=== PATIENT | male | born 1955 | race Caucasian/White ===

== ENCOUNTER 2016-04-16 10:56 | Emergency (ER) ==
[2016-04-16 11:08] VITALS: BP 212/152; TEMP 97.9; BMI 23.5
[2016-04-16] MEDS ORDERED: TRANDATE IVP STA ×2 (11:35→12:31)
[2016-04-16 11:46] LABS: BASOPHILS # (AUTO) 0.1 K/uL (0-0.2); BASOPHILS % (AUTO) 0.8 % (0.0-3.0); EOSINOPHILS # (AUTO) 0.3 K/ul (0.0-0.7); EOSINOPHILS % (AUTO) 2.1 % (0.0-7.0); HEMATOCRIT 49.4 % (42.0-52.0); HEMOGLOBIN 15.7 g/dl (14.0-18.0); IMMATURE GRANULOCYTE % (AUTO) 0.5 % (0.0-5.0); LYMPHOCYTES # (AUTO) 2.3 K/uL (0.60-3.4); LYMPHOCYTES % (AUTO) 17.5 (10.0-50.0); MEAN CORPUSCULAR HEMOGLOBIN 27.7 pg (27.0-31.0); MEAN CORPUSCULAR HGB CONC 31.8 (31.8-35.4); MEAN CORPUSCULAR VOLUME 87.1 fl (80.0-94.0); MONOCYTES # (AUTO) 0.9 K/uL (0.4-2.0); NEUTROPHILS # (AUTO) 9.6 K/ul (2.0-6.9); NEUTROPHILS % (AUTO) 72.1; PLATELET COUNT 204 10^3/uL (140-440); RED BLOOD COUNT 5.67 10^6/ul (4.70-6.10); WHITE BLOOD COUNT 13.27 K/ul (4.2-10.2)
[2016-04-16 11:59] LABS: BILIRUBIN,URINE Negative (NEGATIVE); KETONES,URINE Negative (NEGATIVE); LEUKOCYTE ESTERASE ,URINE Negative (NEGATIVE); NITRITE,URINE Negative (NEGATIVE); PH,URINE 6.5 (5-9); PROTEIN,URINE 1+ (NEGATIVE); URINE, BLOOD 1+ (NEGATIVE)
[2016-04-16 12:02] LABS: ADD URINE MICROSCOPIC YES
--- NOTE | 2016-04-16 12:08 | DI ---
EXAM: Chest two view, frontal and lateral views. HISTORY: Cough. COMPARISON: None available. FINDINGS: The heart size is enlarged. There is tortuosity of the thoracic aorta. 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 Posterior right diaphragm is elevated with focal linear opacity along the right poste rior diaphragm. Otherwise, the lungs are clear. No pleural effusion or pneumothorax is seen. Ther e is no vascular congestion. No acute osseous abnormality identified. IMPRESSION: Elevation of the posterior right diaphragm with adjacent atelectasis. Consider follow-up radiograph s within 3 months for reassessment.
[2016-04-16 12:24] LABS: ALBUMIN 3.8 g/dL (3.4-5.0); ALBUMIN/GLOBULIN RATIO 1.03; ANION GAP 14.5; BILIRUBIN,TOTAL 0.6 mg/dL (0.00-1.20); BUN/CREATININE RATIO 13.55; CALCIUM 9.5 mg/dL (8.2-10.2); CREATININE 1.18 mg/dL (0.60-1.10); POTASSIUM 3.5 mmol/L (3.5-5.1); TOTAL PROTEIN 7.5 g/dL (6.4-8.2); TROPONIN I 0.066 ng/ml (0.0000-0.4000)
--- NOTE | 2016-04-16 12:55 | ED.PDOC ---
General ED Provider: Dr. TENNILLE HERNANDEZ Chief Complaint: Hypertension Stated Complaint: hypertension Time Seen by Physician: 11:00 Mode of Arrival: Walk-In Information Source: Patient Exam Limitations: No limitations Primary Care Provider[facility] Nursing and Triage Documentation Reviewed and Agree: Yes Cardiovascular Complaint Exam - Hypertension Complaint/Exam Onset/Duration: off B/P MEDS FOR WEEKS AT CLINIC HAD SYSTOLIC B/P 200'S Symptoms Are: Still present Reported B/P Prior to Arrival: 200/100 AT CLINIC Alleviating: Reports: None Associated Signs and Symptoms: Denies: Chest pain, Vision changes, Anxiety, Recent stress, Headache, Numbness, Tingling, Weakness, Dizziness, Short of air, Swelling Related Surgical History: Reports: None Cardiac Risk Factors: Reports: Hypertension (CVA) Recent Change in Medications: No A/V [place]: No Papilledema Present: No JVD Present: No Carotid Bruit Present: No Femoral Pulses Bounding: No Differential Diagnoses: Hypertension Review of Systems - Review Of Systems Constitutional: Reports: No symptoms Eyes: Reports: No symptoms Ears, Nose, Mouth, Throat: Reports: No symptoms Respiratory: Reports: No symptoms Cardiac: Reports: No symptoms GI: Reports: No symptoms : Reports: No symptoms Musculoskeletal: Reports: No symptoms Skin: Reports: No symptoms Neurological: Reports: No symptoms Endocrine: Reports: No symptoms Hematologic/Lymphatic: Reports: No symptoms All Other Systems: Reviewed and Negative Past Medical History - Past Medical History Previously Healthy: No Endocrine: Reports: None Cardiovascular: Reports: Hypertension Respiratory: Reports: None Hematological: Reports: None Gastrointestinal: Reports: None Genitourinary: Reports: None Neuro/Psych: Reports: None, CVA Musculoskeletal: Reports: None Cancer: Reports: None - Surgical History General Surgical History: Reports: Unknown - Family History Family History: Reports: Unknown - Social History Smoking Status: Former smoker Hx Substance Use: No Alcohol Screening: None Physical Exam - Physical Exam Appearance: Well-appearing, No pain distress, Well-nourished Eyes: DEEPIKA, EOMI, Conjunctiva clear ENT: Ears normal, Nose normal, Oropharynx normal Respiratory: Airway patent, Breath sounds clear, Breath sounds equal, Respirations nonlabored Cardiovascular: RRR, Pulses normal, No rub, No murmur GI/: Soft, Nontender, No masses, Bowel sounds normal, No Organomegaly Musculoskeletal: Normal strength, ROM intact, No edema, No calf tenderness Skin: Warm, Dry, Normal color Neurological: Sensation intact, Motor intact, Reflexes intact, Cranial nerves intact, Alert, Oriented Psychiatric: Affect appropriate, Mood appropriate Critical Care Note - Critical Care Note Total Time (mins): 0 Course - Course Hematology/Chemistry: 04/16/16 11:40 04/16/16 11:40 Orders, Labs, Meds: Lab Review 04/16/16 04/16/16 11:40 11:51 WBC 13.27 H RBC 5.67 Hgb 15.7 Hct 49.4 MCV 87.1 MCH 27.7 MCHC 31.8 RDW Coeff of Denice 12.5 Plt Count 204 Immature Gran % (Auto) 0.5 Neut % (Auto) 72.1 Lymph % (Auto) 17.5 [place] % (Auto) 7.0 Eos % (Auto) 2.1 Baso % (Auto) 0.8 Immature Gran # (Auto) 0.1 Neut # 9.6 H Lymph # 2.3 [place] # 0.9 Eos # 0.3 Baso # 0.1 Sodium 143 Potassium 3.5 Chloride 105 Carbon Dioxide 27 Anion Gap 14.5 BUN 16 Creatinine 1.18 H Estimated GFR (MDRD) 63.00 BUN/Creatinine Ratio 13.55 Glucose 96 Calcium 9.5 Total Bilirubin 0.60 AST 15 ALT 12 Alkaline Phosphatase 81 Total Creatine Kinase 63 Troponin I 0.0660 Total Protein 7.5 Albumin 3.8 Globulin 3.7 Albumin/Globulin Ratio 1.03 TSH 1.267 Free T4 1.12 Urine Color Yellow Urine Clarity Clear Urine pH 6.5 Ur Specific [place] 1.025 Urine Protein 1+ Urine Glucose (UA) Negative Urine Ketones Negative Urine Blood 1+ Urine Nitrite Negative Urine Bilirubin Negative Urine Urobilinogen 0.2 Ur Leukocyte Esterase Negative Urine Microscopic RBC 2-5 Ur Squamous Epith Cells Not present Orders Category Date Time Status EKG-(ED ONLY) Stat CARDIO 04/16/16 11:35 Completed ED IV/MEDIPORT/POWERPORT .ONCE EMERGENCY 04/16/16 11:35 Active CBC W/ AUTO DIFF Stat LAB 04/16/16 11:40 Completed COMPREHENSIVE METABOLIC PANEL Stat LAB 04/16/16 11:40 Completed CREATINE KINASE Stat LAB 04/16/16 11:40 Completed FREE T4 (FREE THYROXINE) Stat LAB 04/16/16 11:40 Completed THYROID STIMULATING HORMONE Stat LAB 04/16/16 11:40 Completed TROPONIN I Stat LAB 04/16/16 11:40 Completed URINALYSIS C & S IF INDICATED Stat LAB 04/16/16 11:51 Completed 0.9 % Sodium Chloride [Saline Flush] MEDS 04/16/16 11:34 Active 1 syr IVF PRN PRN Labetalol HCl [Trandate] MEDS 04/16/16 11:35 Discontinued 20 mg IVP ONCE STA Labetalol HCl [Trandate] MEDS 04/16/16 12:31 Discontinued 20 mg IVP ONCE STA CHEST, 2 VIEWS PA & LAT Stat RADS 04/16/16 11:35 Completed Medications Generic Name Dose Route Start Last Admin Trade Name Freq PRN Reason Stop Dose Admin Sodium Chloride 1 syr 04/16/16 11:34 04/16/16 11:48 Saline Flush IVF 1 syr PRN PRN Administration To flush IV Discontinued Medications Generic Name Dose Route Start Last Admin Trade Name Freq PRN Reason Stop Dose Admin Labetalol HCl 20 mg 04/16/16 11:35 04/16/16 11:46 Trandate IVP 04/16/16 11:36 20 mg ONCE STA Administration Labetalol HCl 20 mg 04/16/16 12:31 Trandate IVP 04/16/16 12:32 ONCE STA Vital Signs: Temp Pulse Resp BP Pulse Ox 04/16/16 10:57 97.9 F 91 H 20 212/152 H 98 AMANDA Risk Score AMANDA Risk Score: Risk Score Odds of by 30D 0 0.1 (0.1-0.2) 1 0.3 (0.2-0.3) 2 0.4 (0.3-0.5) 3 0.7 (0.6-0.9) 4 1.2 (1.0-1.5) 5 2.2 (1.9-2.6) 6 3.0 (2.5-3.6) 7 4.8 (3.8-6.1) Departure - Departure Time of Disposition: 12:56 Disposition: HOME SELF-CARE Discharge Problem: Poorly-controlled hypertension Instructions: Chronic Hypertension (ED) Condition: Good Pt referred to PMD for follow-up: No Additional Instructions: Please call your Family Physician as soon as possible to schedule a follow-up appointment. Allergies/Adverse Reactions: Allergies No Known Allergies Allergy (Unverified 04/16/16 11:03) Home Medications: Ambulatory Orders Alprazolam 1 mg PO BEDTIME 04/16/16 Dabigatran Etexilate Mesylate [Pradaxa] 150 mg PO BID 04/16/16 Disposition Discussed With: Patient
== END 2016-04-16 13:18 | disposition home or self-care (01) ==
LOC: ED 10:56
DX: I10 Essential (primary) hypertension (principal); R31.9 Hematuria, unspecified; Z91.14 Patient's other noncompliance with medication regimen; Z86.73 Personal history of transient ischemic attack (TIA), and cerebral infarction without residual deficits
CPT/HCPCS: 36415; 80053; 81001; 82550; 84439; 84443; 84484; 85025; 93005; 93010; 96374; 99283

== ENCOUNTER 2016-05-27 10:47 | Outpatient (CLI) ==
[2016-05-27 11:07] LABS: BILIRUBIN,URINE Negative (NEGATIVE); KETONES,URINE Negative (NEGATIVE); LEUKOCYTE ESTERASE ,URINE Negative (NEGATIVE); NITRITE,URINE Negative (NEGATIVE); PROTEIN,URINE Negative (NEGATIVE); URINE, BLOOD 1+ (NEGATIVE)
[2016-05-27 11:09] LABS: ADD URINE MICROSCOPIC YES
--- NOTE | 2016-05-27 11:41 | DI ---
EXAM: Cervical spine three views HISTORY: Neck pain. FINDINGS: No comparison. General bone density is within normal limits. Mild degenerative endplate and facet arthropathy is seen mid spine inferiorly. No loss of vertebral body height, fracture or spondylolisthesis. Soft tissues are within normal limits. Subtle scoliosis convex to the right at the lower cervical level. IMPRESSION: Early degenerative changes of the spine with subtle scoliosis.
== END 2016-05-27 10:48 | disposition home or self-care (01) ==
LOC: RAD 10:47
PROVIDERS: ATTEND Nurse Practitioner Family
DX: M54.2 Cervicalgia (principal); R31.9 Hematuria, unspecified; R91.8 Other nonspecific abnormal finding of lung field
CPT/HCPCS: 81001